=== PATIENT | female | born 1985 | race African-American/Black ===

== ENCOUNTER 2017-11-05 11:09 | Emergency (ER) | payer MEDICAID ==
[~2017-11-05] VITALS: Ht 157.5 cm; Wt 76.0 kg
[~2017-11-05 11:09] MED LIST: CEPH500C5 PO; CLIN300C85 PO; ONDA4TAB6 PO; ONDA8TAB9 PO; PANT-47 PO; PNV1TABL66 PO
[2017-11-05 11:15] VITALS: BP 114/55
== END 2017-11-05 12:34 | disposition home or self-care (01) ==
LOC: ER 11:10
DX: O26.893 Other specified pregnancy related conditions, third trimester (principal); F12.90 Cannabis use, unspecified, uncomplicated; J45.909 Unspecified asthma, uncomplicated; Z79.899 Other long term (current) drug therapy; Z3A.32 32 weeks gestation of pregnancy
CPT/HCPCS: 99281

== ENCOUNTER 2018-02-06 15:17 | Emergency (ER) | payer MEDICAID ==
[~2018-02-06] VITALS: Ht 552.4 cm; Wt 73.2 kg
[~2018-02-06 15:17] MED LIST changes: -CEPH500C5 PO; +PNV1TABL55 PO; -PNV1TABL66 PO
[2018-02-06 15:41] VITALS: BP 116/81
[2018-02-06] MEDS ORDERED: CIPR10DR RIGHT EAR (16:17)
== END 2018-02-06 16:25 | disposition home or self-care (01) ==
LOC: ER 15:17
DX: H60.91 Unspecified otitis externa, right ear (principal); J45.909 Unspecified asthma, uncomplicated; F12.90 Cannabis use, unspecified, uncomplicated; Z79.899 Other long term (current) drug therapy
CPT/HCPCS: 99283

== ENCOUNTER 2018-08-14 08:35 | Emergency (ER) | payer MEDICAID ==
[~2018-08-14] VITALS: Ht 157.5 cm; Wt 77.3 kg
[~2018-08-14 08:35] MED LIST changes: +CLIN-96 PO; -CLIN300C85 PO; +MELO-100 PO
[2018-08-14 08:49] VITALS: BP 146/66
[2018-08-14] MEDS ORDERED: CEPH-571 PO (08:49)
== END 2018-08-14 08:57 | disposition home or self-care (01) ==
LOC: ER 08:35
DX: N76.4 Abscess of vulva (principal); J45.909 Unspecified asthma, uncomplicated; F12.90 Cannabis use, unspecified, uncomplicated
CPT/HCPCS: 99283

== ENCOUNTER 2018-08-27 08:16 | Emergency (ER) | payer MEDICAID ==
[~2018-08-27] VITALS: Ht 157.5 cm; Wt 73.0 kg
[~2018-08-27 08:16] MED LIST changes: +CEPH-571 PO
[2018-08-27 08:29] VITALS: BP 113/80
== END 2018-08-27 09:05 | disposition home or self-care (01) ==
LOC: ER 08:17
DX: M79.641 Pain in right hand (principal); M79.89 Other specified soft tissue disorders; J45.909 Unspecified asthma, uncomplicated; F12.90 Cannabis use, unspecified, uncomplicated; Z79.899 Other long term (current) drug therapy
CPT/HCPCS: 29125; 99283

== ENCOUNTER 2018-12-08 15:44 | Emergency (ER) | payer MEDICAID ==
[~2018-12-08] VITALS: Ht 157.5 cm; Wt 84.4 kg
[2018-12-08] MEDS ORDERED: albuterol 2.5 MG/3 ML nebule NEB ONE (16:10)
[2018-12-08 16:44] VITALS: BP 140/67
[2018-12-08] MEDS ORDERED: ALBU8.5H8 IH (16:50)
== END 2018-12-08 17:10 | disposition home or self-care (01) ==
LOC: ER 15:45
DX: J45.901 Unspecified asthma with (acute) exacerbation (principal); F12.90 Cannabis use, unspecified, uncomplicated; Z79.899 Other long term (current) drug therapy
CPT/HCPCS: 71046; 93005; 94640; 94760; 99283

== ENCOUNTER 2019-02-25 16:43 | Emergency (ER) | payer MEDICAID ==
[~2019-02-25] VITALS: Ht 157.5 cm; Wt 79.0 kg
[~2019-02-25 16:43] MED LIST changes: +ALBU8.5H8 IH; +CLIN-90 PO; -CLIN-96 PO
[2019-02-25] MEDS ORDERED: HYDROcodone/acetaminophen 10/325mg tab PO STA (17:15)
[2019-02-25 18:10] VITALS: BP 122/70
--- NOTE | 2019-02-25 18:10 | NUR ---
PROVIDED PATIENT THE NUMBER OF HER FRIEND SAHRA [phone] WHO IS TAKING CARE OF HER 3 CHILDREN: 8 YO, 4 YO, 13 MONTHS
--- NOTE | 2019-02-25 18:19 | NUR ---
PER PATIENT REQUEST: i CALLED SEBASTIAN OSPINA [phone] AND THE PATIENT'S CHILDREN ARE ALL OK AND EATING DINNER
[2019-02-25] MEDS ORDERED: DICL50TA8 PO (18:50)
== END 2019-02-25 19:09 | disposition home or self-care (01) ==
LOC: ER 16:44
DX: S93.491A Sprain of other ligament of right ankle, initial encounter (principal); M79.604 Pain in right leg; J45.909 Unspecified asthma, uncomplicated; F12.90 Cannabis use, unspecified, uncomplicated; Z79.899 Other long term (current) drug therapy; V43.92XA Unspecified car occupant injured in collision with other type car in traffic accident, initial encounter; Y93.89 Activity, other specified; Y92.481 Parking lot as the place of occurrence of the external cause; Y99.8 Other external cause status
CPT/HCPCS: 72040; 73090; 73590; 73600; 99283

== ENCOUNTER 2020-08-28 17:03 | Emergency (ER) | payer MEDICAID ==
[~2020-08-28] VITALS: Ht 157.5 cm; Wt 68.2 kg
[~2020-08-28 17:03] MED LIST changes: -CLIN-90 PO; +CLIN-97 PO; +DICL50TA8 PO
[2020-08-28 17:38] VITALS: BP 99/75
== END 2020-08-28 19:05 | disposition left against medical advice (07) ==
LOC: ER 17:04
DX: R21 Rash and other nonspecific skin eruption (principal); Z53.21 Procedure and treatment not carried out due to patient leaving prior to being seen by health care provider

== ENCOUNTER 2020-12-30 11:45 | Emergency (ER) | payer MEDICAID ==
[~2020-12-30] VITALS: Ht 157.5 cm; Wt 59.1 kg
[~2020-12-30 11:45] MED LIST changes: +ALBU8.5H17 IH; -ALBU8.5H8 IH
[2020-12-30 12:15] VITALS: BP 111/77
== END 2020-12-30 16:00 | disposition left against medical advice (07) ==
LOC: ER 11:46
DX: J45.909 Unspecified asthma, uncomplicated (principal); F12.10 Cannabis abuse, uncomplicated; Z53.21 Procedure and treatment not carried out due to patient leaving prior to being seen by health care provider

== ENCOUNTER 2021-01-01 14:43 | Emergency (ER) | payer MEDICAID ==
[~2021-01-01] VITALS: Ht 157.5 cm; Wt 59.1 kg
[2021-01-01 14:50] VITALS: BP 138/82
[2021-01-01] MEDS ORDERED: CEPH-585 PO (15:06)
[2021-01-01] MEDS ORDERED: bacitracin 15gm ointment TP ONE (15:10)
== END 2021-01-01 17:24 | disposition home or self-care (01) ==
LOC: ER 14:44
DX: L98.8 Other specified disorders of the skin and subcutaneous tissue (principal); J45.909 Unspecified asthma, uncomplicated; F12.90 Cannabis use, unspecified, uncomplicated; Z79.2 Long term (current) use of antibiotics; Z32.01 Encounter for pregnancy test, result positive; Z79.899 Other long term (current) drug therapy
CPT/HCPCS: 99283

== ENCOUNTER 2021-04-14 11:48 | Emergency (ER) | payer MEDICAID ==
[~2021-04-14] VITALS: Ht 162.6 cm; Wt 63.0 kg
[~2021-04-14 11:48] MED LIST changes: +CEPH-585 PO
[2021-04-14 11:53] VITALS: BP 133/87
[2021-04-14 12:33] LABS: BASOPHILS # (AUTO) 0.1 X10'3 (0-0.2); BASOPHILS % (AUTO) 1.1 % (0-1); EOSINOPHILS # (AUTO) 0.2 X10'3 (0-0.9); EOSINOPHILS % (AUTO) 3.2 % (0-6); HEMATOCRIT 35.1 % (35.0-45.0); HEMOGLOBIN 11.7 g/dl (12.0-16.0); LYMPHOCYTES # (AUTO) 2.7 X10'3 (1.1-4.8); LYMPHOCYTES % (AUTO) 37.3 % (21-51); MEAN CORPUSCULAR HEMOGLOBIN 27.1 PG (27.0-31.0); MEAN CORPUSCULAR HGB CONC 33.5 g/dL (33.0-36.5); MEAN PLATELET VOLUME 7.2 FL (7.4-10.4); MONOCYTES # (AUTO) 0.5 X10'3 (0-0.9); MONOCYTES % (AUTO) 7.3 % (2-12); NEUTROPHILS # (AUTO) 3.7 X10'3 (1.8-7.7); NEUTROPHILS % (AUTO) 51.1 % (42-75); PLATELET COUNT 283 X10'3 (140-440); RED BLOOD COUNT 4.33 X10'6 (4.20-5.60); RED CELL DISTRIBUTION WIDTH 15.8 % (11.5-14.5); WHITE BLOOD COUNT 7.2 X10'3 (4.5-11.0)
[2021-04-14 12:40] LABS: ALANINE AMINOTRANSFERASE 11 U/L (12-78); ALBUMIN 3.8 G/DL (3.4-5.0); ALBUMIN/GLOBULIN RATIO 0.8 (1.1-1.5); ALKALINE PHOSPHATASE 87 IU/L (46-116); ANION GAP 9 (8-16); ASPARTATE AMINO TRANSFERASE 15 U/L (10-37); BILIRUBIN,TOTAL 0.4 MG/DL (0.1-1.0); BLOOD UREA NITROGEN 12 MG/DL (7-18); CALCIUM 9.2 MG/DL (8.5-10.1); CHLORIDE 107 MMOL/L (99-107); CREATININE 1.09 MG/DL (0.40-0.90); GLUCOSE 68 MG/DL (70-104); POTASSIUM 3.6 MMOL/L (3.5-5.1); SODIUM 146 MMOL/L (135-145); TOTAL CARBON DIOXIDE 29.7 MMOL/L (24-32); TOTAL PROTEIN 8.6 G/DL (6.4-8.2); eGFR 69 ML/MIN
== END 2021-04-14 13:28 | disposition home or self-care (01) ==
LOC: ER 11:49
DX: R07.89 Other chest pain (principal); R07.2 Precordial pain; J45.909 Unspecified asthma, uncomplicated; F12.90 Cannabis use, unspecified, uncomplicated; Z56.0 Unemployment, unspecified; Z79.2 Long term (current) use of antibiotics; Z79.899 Other long term (current) drug therapy
CPT/HCPCS: 36415; 71045; 80053; 83880; 84484; 85025; 93005; 99285

== ENCOUNTER 2021-04-17 08:17 | Emergency (ER) | payer MEDICAID ==
[~2021-04-17] VITALS: Ht 157.5 cm; Wt 65.0 kg
[2021-04-17 08:29] VITALS: BP 140/91
[2021-04-17] MEDS ORDERED: CEPH-585 PO (09:03)
[2021-04-17] MEDS ORDERED: SULF1TAB49 PO (09:03)
[2021-04-17] MEDS ORDERED: bacitracin 15gm ointment TP ONE (09:05)
[2021-04-17] MEDS ORDERED: sulfamethoxazole/trimethoprim DS (800/160mg) tablet PO ONE (09:05)
[2021-04-17] MEDS ORDERED: TETanus/Pertussis (Acell)/Diphther VAC/PF (Tdap-Adult) 0.5ml syringe IMVAC ONE (09:05)
[2021-04-17] MEDS ORDERED: cephalexin 250mg capsule PO ONE (09:05)
== END 2021-04-17 09:52 | disposition home or self-care (01) ==
LOC: ER 08:17
DX: S61.22 Laceration with foreign body of finger without damage to nail (principal); J45.909 Unspecified asthma, uncomplicated; W26.0XXD Contact with knife, subsequent encounter; Z59.00 Homelessness unspecified; Z79.899 Other long term (current) drug therapy
CPT/HCPCS: 12001; 90471; 90715; 99283

== ENCOUNTER 2021-04-21 09:53 | Emergency (ER) | payer MEDICAID ==
[~2021-04-21] VITALS: Ht 157.5 cm; Wt 63.6 kg
[~2021-04-21 09:53] MED LIST changes: +SULF1TAB49 PO
[2021-04-21 10:05] VITALS: BP 113/74
[2021-04-21] MEDS ORDERED: PRED20TA PO (11:12)
[2021-04-21] MEDS ORDERED: ALBU6.7H9 INH (11:12)
== END 2021-04-21 12:18 | disposition left against medical advice (07) ==
LOC: ER 09:54
DX: J44.1 Chronic obstructive pulmonary disease with (acute) exacerbation (principal); Z20.822 Contact with and (suspected) exposure to COVID-19; Z59.00 Homelessness unspecified; Z79.899 Other long term (current) drug therapy
CPT/HCPCS: 71045; 87635; 99284; C9803